=== PATIENT | female | born 1955 | race Caucasian/White ===

== ENCOUNTER 2017-04-23 10:06 | Emergency (ER) | payer OTHER ==
[~2017-04-23] VITALS: Ht 165.1 cm; Wt 99.2 kg
[~2017-04-23 10:06] MED LIST: LISI-360 PO
[2017-04-23 10:14] VITALS: BP 141/94; PULSE 94; RESP 18; TEMP 98.9; O2SAT 99
[2017-04-23] MEDS ORDERED: LISI10TA3 PO (10:16)
[2017-04-23] MEDS ORDERED: PRED20 PO (10:32)
--- NOTE | 2017-04-23 10:36 | PD ---
HPI Chief Complaint: Allergic/Adverse Reaction Time Seen by Provider: 10:24 Travel History International Travel<30 days: No Contact w/Intl Traveler<30days: No Traveled to known affect area: No History of Present Illness HPI This patient complains of allergic reaction. Duration 1 hour. Patient felt fine when she woke up. She took her lisinopril which is a chronic medication. Shortly afterwards she developed some itching in her right hand and thought she might of had some swelling in her lower lip. It felt tingly. No sensory loss. No other neurologic complaint. She does have asthma and initially thought she might be having an asthma attack. She used her inhaler. Severity of symptoms moderate. There is spontaneous improvement. At this time she feels back to normal. [facility] Past Medical History Asthma: Yes Depression: Yes High Cholesterol: Yes Diminished Hearing: No Hypertension: Yes Immunizations Current: Yes Menopausal: Yes Dilation and Curettage (D&C): Yes (1988) Past Surgical History Gynecologic Surgery: Yes (CERVICAL CA) Other Surgery: Yes (SINUS 2008) Social History Alcohol Use: Yes (APPROX 4-5 TIMES PER YEAR) Tobacco Use: No Substance Use: No Allergies-Medications (Allergen,Severity, Reaction): Coded Allergies: amoxicillin (Unverified Allergy, Unknown, 04/23/17) clavulanic acid (Unverified Allergy, Unknown, 04/23/17) codeine (Unverified Allergy, Unknown, 04/23/17) penicillin G (Unverified Allergy, Unknown, 04/23/17) Reported Meds & Prescriptions Reported Meds & Active Scripts Active Reported Lisinopril 10 Mg Tab 10 Mg PO DAILY Review of Systems General / Constitutional: No: Fever Cardiovascular: No: Chest Pain or Discomfort Respiratory: No: Cough Physical Exam Narrative GENERAL: Well-nourished, well-developed patient in no apparent distress. SKIN: Focused skin assessment reveals no rash and nodules. Skin is Warm and dry. HEAD: Atraumatic. Normocephalic. EYES: Pupils equal and round. No scleral icterus. No injection or drainage. ENT: No nasal bleeding or discharge. Mucous membranes pink and moist. No swelling of uvula or lips or tongue NECK: Trachea midline. No JVD. CARDIOVASCULAR: Regular rate and rhythm. No murmur appreciated. RESPIRATORY: No accessory muscle use. Clear to auscultation. Breath sounds equal bilaterally. GASTROINTESTINAL: Abdomen soft, non-tender, nondistended. Hepatic and splenic margins not palpable. MUSCULOSKELETAL: No obvious deformities. No clubbing. No cyanosis. No edema. NEUROLOGICAL: Awake and alert. No obvious cranial nerve deficits. Motor grossly within normal limits. Normal speech. PSYCHIATRIC: Appropriate mood and affect; insight and judgment normal. Data Data Last Documented VS Vital Signs Date Time Temp Pulse Resp B/P (MAP) Pulse Ox O2 Delivery O2 Flow Rate FiO2 04/23/17 10:17 99 Room Air 04/23/17 10:14 98.9 94 18 141/94 (110) MDM Medical Decision Making Medical Screen Exam Complete: Yes Emergency Medical Condition: Yes Medical Record Reviewed: Yes Differential Diagnosis Allergic reaction, angioedema, asthma Narrative Course I have reviewed the patient's electronic medical record. Patient may have had a minor attack of angioedema but it was very short-lived Really nothing objective on exam We discussed angioedema and Gualberto inhibitors at length. Given the potential severity of angioedema I've advised her to stop the GUALBERTO inhibitor. She says that she continues to lose weight her blood pressure is dropping any way. Currently 140/90. Wrote her 3 days of prednisone and she will use Benadryl as needed She should discuss with her family physician Diagnosis Primary Impression: Allergic reaction Qualified Codes: T78.40XA - Allergy, unspecified, initial encounter Additional Instructions: The patient was advised to follow up with their physician and return if they worsen. Check and record blood pressure daily Med/Other Pt SpecificInfo: Prescription(s) given Scripts Prednisone (Prednisone) 20 Mg Tab 20 MG PO DAILY, #3 TAB 0 Refills Prov: Alfredo Middleton MD 04/23/17 Disposition: 01 DISCHARGE HOME Condition: Stable Alfredo Middleton MD Apr 23, 2017 10:36
== END 2017-04-23 11:19 | disposition home or self-care (01) ==
LOC: PHED 10:06
DX: T78.40XA Allergy, unspecified, initial encounter (principal); J45.909 Unspecified asthma, uncomplicated; I10 Essential (primary) hypertension
CPT/HCPCS: 99283